=== PATIENT | female | born 1965 | race American Indian/Alaskan Native ===

== ENCOUNTER 2016-11-29 10:26 | Emergency (ER) | payer BC ==
[2016-11-29] MEDS ORDERED: Famotidine 20mg/50ml 20 MG/50 ML BAG IVPB STA (10:51)
[2016-11-29 10:52] VITALS: TEMP 98.1; O2SAT 100
--- NOTE | 2016-11-29 10:52 | ED PDOC ---
Arrival/HPI - General Chief Complaint: Syncope Time Seen by Provider: 11/29/16 10:40 Historian: Patient - History of Present Illness Narrative History of Present Illness (Text): 11/29/16 10:52 51 year old female presents to the emergency department s/p syncopal episode prior to arrival. Patient states she had nausea, abdominal pain, and back pain after eating at a barbecue yesterday, which improved after one episode of non- bloody vomiting. Patient also reports loose stools, but no diarrhea. Today she states she was out with her when she began to feel woozy before going to the bathroom. She states she then woke up on the floor of the bathroom in a seated position, unsure if she hit her head. Denies rectal bleeding or urinary symptoms. PMD: Non [facility], Dr Yasmani Santiago Time/Duration: Prior to Arrival Symptom Onset: Sudden Symptom Course: Unchanged Modifying Factors (Text): None Past Medical History - Provider Review Nursing Documentation Reviewed: Yes - Infectious Disease Hx of Infectious Diseases: None - Cardiac Hx Cardiac Disorders: No - Pulmonary Hx Respiratory Disorders: No - Neurological Hx Neurological Disorder: No - HEENT Hx HEENT Disorder: No - Renal Hx Renal Disorder: No - Endocrine/Metabolic Hx Endocrine Disorders: No Other/Comment: Elevated A1C - Hematological/Oncological Hx Blood Disorders: No - Integumentary Hx Dermatological Disorder: No - Musculoskeletal/Rheumatological Hx Musculoskeletal Disorders: No - Gastrointestinal Hx Gastrointestinal Disorders: Yes Hx Gastroesophageal Reflux: Yes - Genitourinary/Gynecological Hx Genitourinary Disorders: No - Psychiatric Hx Psychophysiologic Disorder: No Hx Substance Use: No - Surgical History Hx Cholecystectomy: Yes - Anesthesia Hx Anesthesia: Yes Hx Anesthesia Reactions: No Family/Social History - Physician Review Nursing Documentation Reviewed: Yes Family/Social History: Unknown Family HX Smoking Status: Never Smoked Hx Alcohol Use: Yes Frequency of alcohol use: Socially Hx Substance Use: No Allergies/Home Meds Allergies/Adverse Reactions: Allergies No Known Allergies Allergy (Verified 11/29/16 10:34) Review of Systems - Physician Review All systems were reviewed & negative as marked: Yes - Review of Systems Cardiovascular: Syncope Gastrointestinal: Abdominal Pain, Stool Changes (loose), Nausea, Vomiting. absent: Diarrhea, Hematochezia Genitourinary Female: absent: Dysuria, Frequency, Hematuria Musculoskeletal: Back Pain Physical Exam Vital Signs Reviewed: Yes Vital Signs Temp Pulse Resp BP Pulse Ox 11/29/16 10:51 98.1 F 63 18 133/80 100 Temperature: Afebrile Blood Pressure: Normal Pulse: Regular Respiratory Rate: Normal Appearance: Positive for: Well-Appearing, Non-Toxic, Comfortable Pain Distress: None Mental Status: Positive for: Alert and Oriented X 3 - Systems Exam Head: Present: Atraumatic, Normocephalic Pupils: Present: PERRL Extroacular Muscles: Present: EOMI Conjunctiva: Present: Normal Mouth: Present: Moist Mucous Membranes Neck: Present: Normal Range of Motion. No: Bruit Respiratory/Chest: Present: Clear to Auscultation, Good Air Exchange. No: Respiratory Distress, Accessory Muscle Use Cardiovascular: Present: Regular Rate and Rhythm, Normal S1, S2. No: Murmurs Abdomen: Present: Normal Bowel Sounds, Guarding (Epigastric). No: Tenderness, Distention, Peritoneal Signs, Rebound Back: Present: Normal Inspection. No: CVA Tenderness, Midline Tenderness Upper Extremity: Present: Normal Inspection. No: Cyanosis, Edema Lower Extremity: Present: Normal Inspection. No: Edema Neurological: Present: GCS=15, CN II-XII Intact, Speech Normal Skin: Present: Warm, Dry, Normal Color. No: Rashes Psychiatric: Present: Alert, Oriented x 3, Normal Insight, Normal Concentration Medical Decision Making ED Course and Treatment: Impression: 51 year old female presents to the emergency department s/p syncopal episode prior to arrival. Differential Diagnosis included but are not limited to: Syncope vasovagal secondary to dehydration. Abdominal pain r/o gastritis vs pancreatitis Plan: -- CT's of the Head w/o contrast and Abdomen/Pelvis -- EKG, CXR -- Labs -- Reassess and disposition Progress Notes: CT Head Consulting Hr Professional: Benoit Reynaga MD IMPRESSION: No acute findings CT Abdomen/Pelvis Consulting Hr Professional: Benoit Reynaga MD IMPRESSION: No acute findings 11/29/16 15:28 Patient feels much better. She is tolerating PO fluids in the ED. CT reviewed with no acute findings. Patient has good follow up and will make sure to follow up with her PMD. Advised to return with any concerning or worsening symptoms. - Lab Interpretations Lab Results: 11/29/16 11:35 11/29/16 13:00 Lab Results 11/29/16 13:45: Urine Color Yellow, Urine Appearance Sl cloudy, Urine pH 6.5, Ur Specific [place] 1.020, Urine Protein Negative, Urine Glucose (UA) Negative, Urine Ketones Trace H, Urine Blood Trace-lysed H, Urine Nitrate Negative, Urine Bilirubin Negative, Urine Urobilinogen 0.2, Ur Leukocyte Esterase Small H, Urine RBC 0 - 2, Urine WBC 1 - 3, Ur Epithelial Cells 6 - 8, Urine Bacteria Trace 11/29/16 13:00: Beta HCG, Quant < 2.39 11/29/16 13:00: Sodium 137, Potassium 4.1, Chloride 104, Carbon Dioxide 27, Anion Gap 10, BUN 8, Creatinine 0.7, Est GFR ( Amer) > 60, Est GFR (Non- Af Amer) > 60, Random Glucose 108, Calcium 8.5, Magnesium 1.9, Total Bilirubin 0.5, AST 37, ALT 34, Alkaline Phosphatase 69, Lactate Dehydrogenase 459, Total Creatine Kinase 50, Troponin I < 0.01, Total Protein 7.8, Albumin 3.9, Globulin 3.9, Albumin/Globulin Ratio 1.0 L, Lipase 25 11/29/16 11:35: WBC 5.2, RBC 5.03, Hgb 13.9, Hct 41.8, MCV 83.1, MCH 27.6, MCHC 33.3, RDW 13.9, Plt Count 211, MPV 9.4, Gran % 81.7 H, Lymph % (Auto) 12.3 L, Young % (Auto) 6.0, Eos % (Auto) 0.0 L, Baso % (Auto) 0.0, Gran # 4.26, Lymph # 0.6 L, Young # 0.3, Eos # 0.0, Baso # 0.00 - RAD Interpretation Radiology Orders: 11/29/16 10:50 CHEST PORTABLE [RAD] Stat 11/29/16 10:51 HEAD W/O CONTRAST [CT] Stat 11/29/16 10:52 ABD & PELVIS W/O PO OR IV CONT [CT] Stat Statue Maker: Radiologist - EKG Interpretation Interpreted by ED Physician: Yes (EKG shows NSR at 64 BPM, otherwise normal) Type: 12 lead EKG - Medication Orders Current Medication Orders: Discontinued Medications Famotidine (Pepcid 20mg/50ml Premix) 20 mg in 50 mls @ 100 mls/hr IVPB STAT STA Stop: 11/29/16 11:20 Last Admin: 11/29/16 11:49 Dose: 100 mls/hr Sodium Chloride (Sodium Chloride 0.9%) 1,000 mls @ 999 mls/hr IV .Q1H1M STA Stop: 11/29/16 14:07 Last Admin: 11/29/16 13:09 Dose: 999 mls/hr - Scribe Statement The provider has reviewed the documentation as recorded by the Ean Aguilera Provider Scribe Attestation: All medical record entries made by the Ean were at my direction and personally dictated by me. I have reviewed the chart and agree that the record accurately reflects my personal performance of the history, physical exam, medical decision making, and the department course for this patient. I have also personally directed, reviewed, and agree with the discharge instructions and disposition. Disposition/Present on Arrival - Present on Arrival Any Indicators Present on Arrival: No History of DVT/PE: No History of Uncontrolled Diabetes: No Urinary Catheter: No History of Decub. Ulcer: No History Surgical Site Infection Following: None - Disposition Have Diagnosis and Disposition been Completed?: Yes Diagnosis: Vasovagal syncope, Gastroenteritis, Abdominal pain Disposition: HOME/ ROUTINE Disposition Time: 15:29 Patient Plan: Discharge Patient Problems: Current Active Problems Problem Status Onset Vasovagal syncope Acute Gastroenteritis Acute Abdominal pain Acute Condition: IMPROVED Discharge Instructions (ExitCare): Syncope (ED) Additional Instructions: Ms. Graves, thank you for letting us take care of you today. Your provider was Dr. Gomez. You were treated for Abdominal Pain, Gastroenteritis, Vasovagol Syncope. The emergency medical care you received today was directed at your acute symptoms. If you were prescribed any medication, please fill it and take as directed. It may take several days for your symptoms to resolve. Return to the Emergency Department if your symptoms worsen, do not improve, or if you have any other problems. Please contact your doctor or call one of the physicians/clinics you have been referred to that are listed on the Patient Visit Information form that is included in your discharge packet. Bring any paperwork you were given at discharge with you along with any medications you are taking to your follow up visit. Our treatment cannot replace ongoing medical care by a primary care provider (PCP) outside of the emergency department. Thank you for allowing the [facility] team to be part of your care today. If you had an X-Ray or CT scan: A Radiologist will review the ED reading if any change in treatment is needed we will contact you. If you had a blood, urine, or wound culture: It will take several days for the results, if any change in treatment is needed we will contact you. If you had an STI test: It will take 48 hours for the results. Please call after 1 week if you have not heard back. Prescriptions: Ondansetron ODT [Zofran ODT] 4 mg PO Q6 #14 odt Ranitidine HCl [Zantac] 150 mg PO BID PRN #30 tablet PRN Reason: Pain, Mild (1-3) Referrals: [id number] Kath Rechristiano, [Primary Care Provider] - Follow up with primary Forms: [employer] ([place]), WORK NOTE
[2016-11-29 11:47] LABS: ADD MANUAL DIFF? NO
[2016-11-29 11:51] LABS: GRAN # 4.26 (1.4-6.5); GRAN % 81.7 % (50.0-68.0); HEMATOCRIT 41.8 % (36.0-48.0); LYMPH # 0.6 (1.2-3.4); LYMPH % 12.3 % (22.0-35.0); MEAN CELL VOLUME 83.1 fL (80.0-105.0); MEAN CORPUSCULAR HEMOGLOBIN 27.6 pg (25.0-35.0); MEAN CORPUSCULAR HGB CONC 33.3 g/dl (31.0-37.0); MEAN PLATELET VOLUME 9.4 fl (7.0-11.0); MONO # 0.3 (0.1-0.6); PLATELET COUNT 211 10^3/uL (120.0-450.0); RED CELL DISTRIBUTION WIDTH 13.9 % (11.5-14.5); WHITE BLOOD COUNT 5.2 10^3/ul (4.5-11.0)
[2016-11-29] MEDS ORDERED: Sodium Chloride 0.9% 1,000 ML IV STA (13:07)
[2016-11-29 13:37] LABS: ALKALINE PHOSPHATASE 69 U/L (38-133); ALT/SGPT 34 U/L (7-56); AST/SGOT 37 U/L (15-39); BILIRUBIN,TOTAL 0.5 mg/dL (0.2-1.3); BLOOD UREA NITROGEN 8 mg/dL (7-21); CALCIUM 8.5 mg/dL (8.4-10.5); CARBON DIOXIDE 27 mmol/L (21-33); CHLORIDE 104 mmol/L (95-110); GFR AFRICAN-AMERICAN > 60; GLUCOSE,RANDOM 108 mg/dL (70-110); LIPASE 25 U/L (23-300); MAGNESIUM 1.9 mg/dL (1.7-2.2); POTASSIUM 4.1 mmol/L (3.6-5.0); SODIUM 137 mmol/L (132-148); TOTAL PROTEIN 7.8 g/dL (5.8-8.3)
[2016-11-29 14:00] LABS: PH,URINE 6.5 (4.7-8.0); URINE BILIRUBIN NEGATIVE (NEGATIVE); URINE BLOOD TRACE-LYSED (NEGATIVE); URINE GLUCOSE (UA) NEGATIVE (NEGATIVE); URINE KETONE TRACE mg/dL (NEGATIVE); URINE LEUKOCYTE ESTERASE SMALL Leu/uL (NEGATIVE); URINE PROTEIN NEGATIVE mg/dL (<30 mg/dL); URINE UROBILINOGEN 0.2 E.U./dL (<1 E.U./dL)
[2016-11-29 14:07] LABS: URINE APPEARANCE SL CLOUDY (CLEAR); URINE COLOR YELLOW (YELLOW)
[2016-11-29 14:07] LABS: TROPONIN I < 0.01 ng/mL
[2016-11-29 14:08] LABS: URINE BACTERIA TRACE (NEG); URINE RBC 0 - 2 /hpf (0-2)
--- NOTE | 2016-11-29 14:09 | CT ---
PROCEDURE: CT HEAD WITHOUT CONTRAST. HISTORY: possible head injury COMPARISON: None available. TECHNIQUE: Axial computed tomography images were obtained through the head/brain without intravenous contrast. Radiation dose: Total exam DLP = 688 mGy-cm. This CT exam was performed using one or more of the following dose reduction techniques: Automated exposure control, adjustment of the mA and/or kV according to patient size, and/or use of iterative reconstruction technique. FINDINGS: HEMORRHAGE: No intracranial hemorrhage. BRAIN: No mass effect or edema. No atrophy or chronic microvascular ischemic changes. VENTRICLES: Unremarkable. No hydrocephalus. CALVARIUM: Unremarkable. PARANASAL SINUSES: Unremarkable as visualized. No significant inflammatory changes. MASTOID AIR CELLS: Unremarkable as visualized. No inflammatory changes. OTHER FINDINGS: None. IMPRESSION: No acute findings
--- NOTE | 2016-11-29 14:15 | CT ---
PROCEDURE: CT Abdomen and Pelvis without intravenous contrast HISTORY: back and abd pain r/o stones COMPARISON: None. TECHNIQUE: Without contrast.. Contrast Dose: Radiation dose: Total exam DLP = 586 mGy-cm. This CT exam was performed using one or more of the following dose reduction techniques: Automated exposure control, adjustment of the mA and/or kV according to patient size, and/or use of iterative reconstruction technique. FINDINGS: LOWER THORAX: Unremarkable. LIVER: Unremarkable. No gross lesion or ductal dilatation. GALLBLADDER AND BILE DUCTS: Gallbladder removed PANCREAS: Unremarkable. No gross lesion or ductal dilatation. SPLEEN: Unremarkable. ADRENALS: Unremarkable. No mass. KIDNEYS AND URETERS: Unremarkable. No hydronephrosis. No solid mass. VASCULATURE: Unremarkable. No aortic aneurysm. BOWEL: Unremarkable. No obstruction. No gross mural thickening. APPENDIX: Unremarkable. Normal appendix. PERITONEUM: Unremarkable. No free fluid. No free air. LYMPH NODES: Unremarkable. No enlarged lymph nodes. BLADDER: Unremarkable. REPRODUCTIVE: Unremarkable. BONES: No acute fracture. OTHER FINDINGS: None. IMPRESSION: No acute finding
--- NOTE | 2016-11-29 14:57 | RAD ---
HISTORY: syncope COMPARISON: No prior. FINDINGS: LUNGS: No active pulmonary disease. PLEURA: No significant pleural effusion identified, no pneumothorax apparent. CARDIOVASCULAR: Normal. OSSEOUS STRUCTURES: No significant abnormalities. VISUALIZED UPPER ABDOMEN: Normal. OTHER FINDINGS: None. IMPRESSION: No active disease.
[2016-11-29 16:08] VITALS: BP 125/79; PULSE 67; RESP 17
--- NOTE | 2016-11-29 16:43 | CARD ---
APPROVED REPORT EKG Measurement Heart [id number] <Conclusion> Normal sinus rhythm Nonspecific T wave abnormality Abnormal ECG
== END 2016-11-29 16:05 | disposition home or self-care (01) ==
LOC: ED 10:26
DX: K52.9 Noninfective gastroenteritis and colitis, unspecified (principal); R55 Syncope and collapse; R10.9 Unspecified abdominal pain
CPT/HCPCS: 70450; 71010; 74176; 80053; 81001; 82550; 83615; 83690; 83735; 84484; 84702; 85025; 93005; 96361; 96365; 99285; J7040